=== PATIENT | male | born 1990 | race Two or more races ===

== ENCOUNTER 2017-12-11 16:10 | Emergency (ER) | payer SELFPAY ==
[~2017-12-11] VITALS: Ht 180.3 cm; Wt 95.4 kg
[2017-12-11 16:18] VITALS: BP 116/79
[2017-12-11 17:06] LABS: BASOPHILS # (AUTO) 0.02 x10^3/uL (0-0.1); BASOPHILS % (AUTO) 0 % (0-1); EOSINOPHILS # (AUTO) 0.02 x10^3/uL (0-0.4); EOSINOPHILS % (AUTO) 0 % (1-7); LYMPHOCYTES % (AUTO) 28 % (22-44); MD NO; MEAN CORPUSCULAR HEMOGLOBIN 30.5 pg (27.5-34.5); MEAN CORPUSCULAR HGB CONC 34.3 g/dL (33.2-36.2); MEAN CORPUSCULAR VOLUME 88.8 fL (81-97); MEAN PLATELET VOLUME 8.2 fL (7.4-10.4); MONOCYTES # (AUTO) 0.36 x10^3/uL (0.2-0.8); MONOCYTES % (AUTO) 4 % (2-9); NEUTROPHILS # (AUTO) 5.85 x10^3/uL (1.8-6.8); NEUTROPHILS % (AUTO) 68 % (42-75); PLATELET COUNT 242 x10^3/uL (130-400); RED BLOOD COUNT 5.44 x10^6/uL (4.38-5.82); RED CELL DISTRIBUTION WIDTH 12.3 % (9.4-14.8)
[2017-12-11 17:19] LABS: ALBUMIN 4.2 g/dL (3.4-5.0); ANION GAP 6 mmol/L (5-15); CHLORIDE 110 mmol/L (98-107); PROTHROMBIN TIME 10.4 Seconds (9.6-11.5)
[2017-12-11 17:22] LABS: ALANINE AMINOTRANSFERASE 21 U/L (12-78); ALKALINE PHOSPHATASE 50 U/L (45-117); BILIRUBIN,TOTAL 0.8 mg/dL (0.2-1.0); CREATININE 0.81 mg/dL (0.7-1.3); TOTAL PROTEIN 6.9 g/dL (6.4-8.2)
== END 2017-12-11 17:48 | disposition home or self-care (01) ==
LOC: ED 17:00
DX: S81.832A Puncture wound without foreign body, left lower leg, initial encounter (principal); X58.XXXA Exposure to other specified factors, initial encounter; Y93.89 Activity, other specified; Y92.89 Other specified places as the place of occurrence of the external cause; Y99.8 Other external cause status
CPT/HCPCS: 36415; 80053; 85025; 85610; 99284

== ENCOUNTER 2017-12-26 02:01 | Emergency (ER) | payer SELFPAY ==
[~2017-12-26] VITALS: Ht 180.3 cm; Wt 92.2 kg
[2017-12-26 02:03] VITALS: BP 130/87
[2017-12-26] MEDS ORDERED: [UNRECOGNIZED DRUG - OTHER] (02:13)
== END 2017-12-26 02:43 | disposition home or self-care (01) ==
LOC: ED 02:05
DX: F15.10 Other stimulant abuse, uncomplicated (principal)
CPT/HCPCS: 93005; 99283

== ENCOUNTER 2018-06-28 12:50 | Emergency (ER) | payer MEDICAID, OTHER ==
[~2018-06-28] VITALS: Ht 177.8 cm; Wt 83.2 kg
[~2018-06-28 12:50] MED LIST: [UNRECOGNIZED DRUG - OTHER]
[2018-06-28 13:02] VITALS: BP 144/87
== END 2018-06-28 14:39 | disposition home or self-care (01) ==
LOC: ED 14:37
DX: M62.838 Other muscle spasm (principal)
CPT/HCPCS: 93005; 99283

== ENCOUNTER 2021-05-15 16:50 | Emergency (ER) | payer SELFPAY ==
[~2021-05-15] VITALS: Ht 182.9 cm; Wt 80.4 kg
[2021-05-15 16:53] VITALS: BP 148/86
--- NOTE | 2021-05-15 18:00 | NUR ---
No answer in lobby when pt called for PIT
--- NOTE | 2021-05-15 19:05 | NUR ---
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
--- NOTE | 2021-05-15 19:21 | NUR ---
PATIENT NOT IN LOBBY WHEN CALLED TO CHECK VITALS.
== END 2021-05-15 19:54 | disposition left against medical advice (07) ==
LOC: ED 19:30
DX: J11.1 Influenza due to unidentified influenza virus with other respiratory manifestations (principal); R94.31 Abnormal electrocardiogram [ECG] [EKG]; Z53.21 Procedure and treatment not carried out due to patient leaving prior to being seen by health care provider
CPT/HCPCS: 93005